=== PATIENT | female | born 1960 | race Hispanic/Latino ===

== ENCOUNTER 2018-04-17 09:35 | Observation (INO) | payer OTHER ==
[2018-04-17] MEDS ORDERED: Sodium Chloride 0.9% 1,000 ML IV STA (10:05)
--- NOTE | 2018-04-17 10:08 | ED PDOC ---
HPI: Abdomen Time Seen by Provider: 04/17/18 09:54 Chief Complaint (Nursing): Abdominal Pain History Per: Patient Onset/Duration Of Symptoms: Days (2) Current Symptoms Are (Timing): Still Present Severity: Moderate Pain Scale Rating Of: 5 Location Of Pain/Discomfort: Epigastric Quality Of Discomfort: Unable To Describe Associated Symptoms: Nausea, Vomiting. denies: Fever, Diarrhea Exacerbating Factors: None Alleviating Factors: None Additional Complaint(s): Epigastric abd pain assoc with nausea and vomiting x 2 days. Denies fever. Has been having BM as well as passing gas. Denies rectal bleeding. H/o intestinal obstruction and intussusseption Past Medical History Vital Signs: Last Vital Signs Temp Pulse Resp BP Pulse Ox 98 04/17/18 10:08 - Surgical History Other surgeries: Intestinal obstruction, intussusseption - Family History Family History: States: Unknown Family Hx - Allergies Allergies/Adverse Reactions: Allergies Allergy/AdvReac Type Severity Reaction Status Date / Time Penicillins Allergy Mild RASH Verified 04/17/18 09:46 Review of Systems ROS Statement: Except As Marked, All Systems Reviewed And Found Negative Constitutional: Negative for: Fever Gastrointestinal: Positive for: Nausea, Vomiting, Abdominal Pain. Negative for : Melena, Hematochezia Physical Exam - Physical Exam Appears: Positive for: Non-toxic, Uncomfortable Skin: Positive for: Normal Color, Warm, DRY ENT: Positive for: Other (Mucous membranes dry) Gastrointestinal/Abdominal: Positive for: Bowel Sounds, Soft, Tenderness ( Epigastric) Extremity: Positive for: Normal ROM Neurologic/Psych: Positive for: Alert, Oriented - Laboratory Results Result Diagrams: 04/17/18 10:15 04/17/18 10:15 - ECG O2 Sat by Pulse Oximetry: 98 Disposition - Clinical Impression Clinical Impression: SBO (small bowel obstruction) - Patient ED Disposition Is Patient to be Admitted: Yes - Disposition Disposition Time: 12:28 Condition: FAIR Forms: [employer] (Macedonian) - Pt Status Changed To: Hospital Disposition Of: Observation - POA Present On Arrival: None
[2018-04-17 10:31] LABS: BASO % 0.4 % (0.0-2.0); HEMOGLOBIN 14.8 g/dL (12.0-16.0); LYMPH # 1.3 K/uL (1.0-4.3); LYMPH % 14.4 % (20.0-40.0); MEAN CELL VOLUME 95.4 fl (81.0-99.0); MEAN CORPUSCULAR HEMOGLOBIN 33.3 pg (27.0-31.0); MEAN CORPUSCULAR HGB CONC 34.9 g/dL (33.0-37.0); MEAN PLATELET VOLUME 8.3 fl (7.2-11.7); MONO # 0.5 K/uL (0.0-0.8); MONO % 5.3 % (0.0-10.0); NEUT # 7.4 K/uL (1.8-7.0); NEUT % 79.9 % (50.0-75.0); NRBC % 0.1 % (0.0-0.0); RBC 4.45 Mil/uL (3.80-5.20); WHITE BLOOD COUNT 9.3 K/uL (4.8-10.8)
[2018-04-17 10:33] LABS: ALB/GLOB RATIO 1.3 (1.0-2.1); ALBUMIN 4.8 g/dL (3.5-5.0); CALCIUM 9.6 mg/dL (8.4-10.2); GFR AFRICAN-AMERICAN > 60; GFR NON-AFRICAN AMERICAN > 60; LIPASE 81 U/L (23-300)
[2018-04-17 10:41] LABS: ALT/SGPT 25 U/L (9-52); AST/SGOT 38 U/L (14-36); BLOOD UREA NITROGEN 17 mg/dl (7-17)
[2018-04-17] MEDS ORDERED: Iohexol 300 100 ML IJ ONE (11:12)
[2018-04-17] MEDS ORDERED: Sodium Chloride 0.9% 50 ML IV ONE (11:12)
--- NOTE | 2018-04-17 12:21 | CT ---
PROCEDURE: CT Abdomen and Pelvis with contrast HISTORY: Abd pain COMPARISON: None. TECHNIQUE: Contrast dose: 98 mL Omnipaque 300 Radiation dose: Total exam DLP = 465.1 mGy-cm. This CT exam was performed using one or more of the following dose reduction techniques: Automated exposure control, adjustment of the mA and/or kV according to patient size, and/or use of iterative reconstruction technique. FINDINGS: LOWER THORAX: Unremarkable. LIVER: Hepatic steatosis. No gross lesion or ductal dilatation. GALLBLADDER AND BILE DUCTS: Unremarkable. PANCREAS: Unremarkable. No gross lesion or ductal dilatation. SPLEEN: Unremarkable. ADRENALS: Unremarkable. No mass. KIDNEYS AND URETERS: Unremarkable. No hydronephrosis. No solid mass. VASCULATURE: Unremarkable. No aortic aneurysm. BOWEL: Dilated small bowel with fecalization of small bowel contents with transition in the distal ileum with there is submucosal edema and small amount of adjacent fluid. Colonic diverticulosis. APPENDIX: No findings to suggest acute appendicitis. PERITONEUM: Unremarkable. No free fluid. No free air. LYMPH NODES: Unremarkable. No enlarged lymph nodes. BLADDER: Unremarkable. REPRODUCTIVE: Right adnexal cyst measuring 7.7 x 5.3 cm. BONES: No acute fracture. OTHER FINDINGS: None. IMPRESSION: High-grade small bowel obstruction with transition in the distal ileum where there is submucosal edema and a small amount of adjacent fluid. Multiple attempts to convey the findings to the emergency department were unsuccessful.
--- NOTE | 2018-04-17 13:33 | CP.PCM.CON ---
History of Present Illness - History of Present Illness History of Present Illness: General surgery consult note for Dr. Migel Whaley, PGY-2 Pt S & E at bedside at 1305 57F w/PSH for ex-lap x 2, laparoscopy w/adhesionolysis consulted for SBO. Pt reports sudden onset of abdominal pain one day [employer] in AM, pain was sharp, epigastric, non radiating, constant since onset, worsening in intensity overnight. Tried Tramadol and MJ without relief. Pt reports at least 30 episodes of similar, usually self-resolving at home without intervention. Pt admits to eating only solid foods at breakfast, generally eats ice cream for dinner. Also admits to N, emesis x 6-7 (white foam, nb, nb), flatus in the AM on day of evaluation, BM (normal caliber/consistency) at approximately 9am on day of evaluation, generalized weakness, dizziness, headache, palpitations, episodes of diaphoresis with pain, subjective fevers/chills, fatigue. Denies constipation, diarrhea, changes in urinary habits, dysuria, back pain, chest pain, SOB, numbness/tingling of extremities, other complaints. In ED- Afebrile, no leukocytosis, Vitals WNL. CT abdomen w/High-grade small bowel obstruction with transition in the distal ileum where there is submucosal edema and a small amount of adjacent fluid. PMH: hx TB, hx of intussussception at 10mos with recurrent episodes of abdominal pain PSH: ex-lap w/bowel resection at 10mos, ex-lap with adhensionolysis at 13yrs, laparoscopy w/adhesionlysis in 2012 All: PCN SH: Rare ETOH use, hx tobacco use - quit in 2007 (hx of #5 cigarettes daily x 35 yrs), admits to occasional MJ use FH: Non contributory Review of Systems - Review of Systems All systems: reviewed and no additional remarkable complaints except - Constitutional Constitutional: Anorexia (decreased appetite), Chills, Fever (subjective), Weakness. absent: Weight Loss - EENT Eyes: absent: Change in Vision Ears: Dizziness Nose/Mouth/Throat: absent: Sore Throat - Cardiovascular Cardiovascular: Palpitations. absent: Chest Pain, Leg Edema - Gastrointestinal Gastrointestinal: Abdominal Pain, Bloating (slightly), Nausea, Vomiting. absent : Change in Bowel Habits, Constipation, Diarrhea, Hematemesis, Hematochezia, Melena - Genitourinary Genitourinary: absent: Change in Urinary Stream, Dysuria, Hematuria - Musculoskeletal Musculoskeletal: absent: Back Pain, Numbness, Tingling - Integumentary Integumentary: absent: Rash - Neurological Neurological: Dizziness, Weakness. absent: Focal Weakness - Psychiatric Psychiatric: absent: Change in Appetite - Endocrine Endocrine: Fatigue Past Patient History - Past Social History Smoking Status: Never Smoked - GENITOURINARY/GYNECOLOGICAL Hx Genitourinary Disorders: Yes - PSYCHIATRIC Hx Substance Use: No - SURGICAL HISTORY Hx Surgeries: Yes Other/Comment: intestinal obstruction, intussusseption - ANESTHESIA Hx Anesthesia: Yes Hx Anesthesia Reactions: No Meds Allergies/Adverse Reactions: Allergies Allergy/AdvReac Type Severity Reaction Status Date / Time Penicillins Allergy Mild RASH Verified 04/17/18 09:46 - Medications Medications: Current Medications Famotidine (Pepcid) 20 mg IVP Q12 [facility] Sodium Chloride (Sodium Chloride 0.9%) 1,000 mls @ 150 mls/hr IV .Q6H40M [facility] Stop: 04/17/18 16:44 Last Admin: 04/17/18 10:26 Dose: 150 mls/hr Sodium Chloride (Sodium Chloride 0.9%) 1,000 mls @ 125 mls/hr IV .Q8H [facility] Stop: 04/18/18 13:09 Ketorolac Tromethamine (Toradol) 30 mg IVP Q6 PRN PRN Reason: Pain, moderate (4-7) Morphine Sulfate (Morphine) 2 mg IVP Q4 PRN PRN Reason: Pain, severe (8-10) Ondansetron HCl (Zofran Inj) 4 mg IVP Q6 PRN PRN Reason: Nausea/Vomiting Physical Exam - Constitutional Appears: Non-toxic, No Acute Distress - Head Exam Head Exam: ATRAUMATIC, NORMAL INSPECTION, NORMOCEPHALIC - Eye Exam Eye Exam: EOMI, Normal appearance - ENT Exam ENT Exam: Mucous Membranes Moist, Normal Exam - Neck Exam Neck exam: Positive for: Full Rom, Normal Inspection - Respiratory Exam Respiratory Exam: Clear to Auscultation Bilateral, NORMAL BREATHING PATTERN. absent: Rales, Rhonchi, Wheezes, Respiratory Distress, Stridor - Cardiovascular Exam Cardiovascular Exam: REGULAR RHYTHM, +S1, +S2 - GI/Abdominal Exam GI & Abdominal Exam: Hypoactive Bowel Sounds, Soft, Tenderness (epigastric area , suprapubic at distal aspect of ex-lap incision). absent: Distended, Firm, Guarding, Hernia, Normal Bowel Sounds Additional comments: well healed paramedian incision, well healed midline incision, well healed linear incision in epigastric area - Rectal Exam Rectal Exam: Deferred (declined) - Extremities Exam Extremities exam: Positive for: normal inspection. Negative for: pedal edema - Neurological Exam Neurological exam: Alert, CN II-XII Intact, Oriented x3 - Psychiatric Exam Psychiatric exam: Normal Affect, Normal Mood - Skin Skin Exam: Dry, Intact, Normal Color, Warm Results - Vital Signs Recent Vital Signs: Last Vital Signs Temp 98.8 F 04/17/18 13:23 Pulse 73 04/17/18 13:23 Resp 15 04/17/18 13:23 BP 121/74 04/17/18 13:23 Pulse Ox 98 04/17/18 12:29 - Labs Result Diagrams: 04/17/18 10:15 04/17/18 10:15 Labs: Laboratory Results - last 24 hr 04/17/18 04/17/18 10:15 10:15 WBC 9.3 RBC 4.45 Hgb 14.8 Hct 42.4 MCV 95.4 MCH 33.3 H MCHC 34.9 RDW 13.0 Plt Count 274 MPV 8.3 Neut % (Auto) 79.9 H Lymph % (Auto) 14.4 L [place] % (Auto) 5.3 Eos % (Auto) 0.0 Baso % (Auto) 0.4 Neut # (Auto) 7.4 H Lymph # (Auto) 1.3 [place] # (Auto) 0.5 Eos # (Auto) 0.0 Baso # (Auto) 0.0 Sodium 142 Potassium 4.3 Chloride 105 Carbon Dioxide 23 Anion Gap 18 BUN 17 Creatinine 0.7 Est GFR ( Amer) > 60 Est GFR (Non-Af Amer) > 60 Random Glucose 108 H Calcium 9.6 Total Bilirubin 0.9 AST 38 H ALT 25 Alkaline Phosphatase 53 Total Protein 8.5 H Albumin 4.8 Globulin 3.8 Albumin/Globulin Ratio 1.3 Lipase 81 Assessment & Plan - Assessment and Plan (Free Text) Assessment: 57F w/PSH for ex-lap x 2, laparoscopy w/adhesionolysis, recurrent episodes of abdominal pain consulted for SBO Plan: Pain control IVF Serial ab exams NGT if condition worsens- pt currently declining Pt requesting supervisor packing room evaluation for diet recommendations Further recs pending attending evaluation Will DW attending Jovana, PGY-2 - Date & Time Date: 04/17/18 Time: 13:35
--- NOTE | 2018-04-17 17:48 | CP.PCM.CON ---
History of Present Illness - History of Present Illness History of Present Illness: General surgery Agree with resident's consult note. Pt seen and examined now 1745, and she reports feeling significantly better. She reports she can lay on her stomach now, which she wasn't able to do previously. She hasn't passed gas since this AM. She reports she usually stays at home for her current abdominal pain however presented to the ED today because she felt very dehydrated and had palpitations. Vitals, Labs, and CT results noted. PE Gen: Pt laying in bed in NAD Skin: warm and dry Cardio: s1s2 rrr Lungs: CTA bilaterally Abd: Soft, not distended, (+) hypoactive BS, Mild tenderness near well healed surgical scars. Extr: (-) calf tenderness bilaterally A/P SBO Appears to be improving, as pt does not find the need for NGT as she is not nauseous, not vomiting, and has improved abdominal discomfort. Awaiting flatus Keep NPO for now Continue IVF. Past Patient History - Past Social History Smoking Status: Never Smoked - GENITOURINARY/GYNECOLOGICAL Hx Genitourinary Disorders: Yes - PSYCHIATRIC Hx Substance Use: No - SURGICAL HISTORY Hx Surgeries: Yes Other/Comment: intestinal obstruction, intussusseption - ANESTHESIA Hx Anesthesia: Yes Hx Anesthesia Reactions: No Meds Allergies/Adverse Reactions: Allergies Allergy/AdvReac Type Severity Reaction Status Date / Time Penicillins Allergy Mild RASH Verified 04/17/18 09:46 - Medications Medications: Current Medications Famotidine (Pepcid) 20 mg IVP Q12 [facility] Sodium Chloride (Sodium Chloride 0.9%) 1,000 mls @ 125 mls/hr IV .Q8H [facility] Stop: 04/18/18 13:09 Ketorolac Tromethamine (Toradol) 30 mg IVP Q6 PRN PRN Reason: Pain, moderate (4-7) Morphine Sulfate (Morphine) 2 mg IVP Q4 PRN PRN Reason: Pain, severe (8-10) Ondansetron HCl (Zofran Inj) 4 mg IVP Q6 PRN PRN Reason: Nausea/Vomiting Results - Vital Signs Recent Vital Signs: Last Vital Signs Temp 98.1 F 04/17/18 15:53 Pulse 71 04/17/18 15:53 Resp 19 04/17/18 15:53 BP 89/55 L 04/17/18 15:53 Pulse Ox 96 07/08/18 15:53 - Labs Result Diagrams: 04/17/18 10:15 04/17/18 10:15 Labs: Laboratory Results - last 24 hr 04/17/18 04/17/18 10:15 10:15 WBC 9.3 RBC 4.45 Hgb 14.8 Hct 42.4 MCV 95.4 MCH 33.3 H MCHC 34.9 RDW 13.0 Plt Count 274 MPV 8.3 Neut % (Auto) 79.9 H Lymph % (Auto) 14.4 L [place] % (Auto) 5.3 Eos % (Auto) 0.0 Baso % (Auto) 0.4 Neut # (Auto) 7.4 H Lymph # (Auto) 1.3 [place] # (Auto) 0.5 Eos # (Auto) 0.0 Baso # (Auto) 0.0 Sodium 142 Potassium 4.3 Chloride 105 Carbon Dioxide 23 Anion Gap 18 BUN 17 Creatinine 0.7 Est GFR ( Amer) > 60 Est GFR (Non-Af Amer) > 60 Random Glucose 108 H Calcium 9.6 Total Bilirubin 0.9 AST 38 H ALT 25 Alkaline Phosphatase 53 Total Protein 8.5 H Albumin 4.8 Globulin 3.8 Albumin/Globulin Ratio 1.3 Lipase 81
[2018-04-17] MEDS: Sodium Chloride 0.9% 1,000 ML IV SCH (22:01)
[2018-04-18] MEDS: Sodium Chloride 0.9% 1,000 ML IV SCH (02:19)
[2018-04-18 06:17] LABS: BASO % 0.5 % (0.0-2.0); EOS # 0.1 K/uL (0.0-0.7); EOS % 1.3 % (0.0-4.0); HEMOGLOBIN 12.1 g/dL (12.0-16.0); LYMPH # 2.9 K/uL (1.0-4.3); LYMPH % 45.1 % (20.0-40.0); MEAN CELL VOLUME 96.7 fl (81.0-99.0); MEAN CORPUSCULAR HGB CONC 34.1 g/dL (33.0-37.0); MEAN PLATELET VOLUME 8.1 fl (7.2-11.7); MONO # 0.6 K/uL (0.0-0.8); MONO % 8.9 % (0.0-10.0); NEUT # 2.9 K/uL (1.8-7.0); NEUT % 44.2 % (50.0-75.0); NRBC % 0.3 % (0.0-0.0); RBC 3.67 Mil/uL (3.80-5.20); RED CELL DISTRIBUTION WIDTH 13.3 % (11.5-14.5); WHITE BLOOD COUNT 6.5 K/uL (4.8-10.8)
[2018-04-18 06:21] LABS: ALB/GLOB RATIO 1.2 (1.0-2.1); ALBUMIN 3.2 g/dL (3.5-5.0); ALT/SGPT 22 U/L (9-52); AST/SGOT 21 U/L (14-36); BLOOD UREA NITROGEN 19 mg/dl (7-17); CALCIUM 8.2 mg/dL (8.4-10.2); GFR AFRICAN-AMERICAN > 60; GFR NON-AFRICAN AMERICAN > 60
[2018-04-18] MEDS ORDERED: Potassium Chloride 20 mEq ER Tab PO ONE (07:30)
--- NOTE | 2018-04-18 07:50 | CP.PCM.HP ---
History of Present Illness - History of Present Illness History of Present Illness: pt doing well admitted for partial sbo which she has a h/o no fcnvd bw and ct noted surgical consult approxiated pt requesting dietsry consult Present on Admission - Present on Admission Any Indicators Present on Admission: No Review of Systems - Gastrointestinal Gastrointestinal: As Per HPI, Abdominal Pain, Bloating Past Patient History - Past Medical History & Family History Past Medical History?: No - Past Social History Smoking Status: Never Smoked - MUSCULOSKELETAL/RHEUMATOLOGICAL Hx Falls: No - GENITOURINARY/GYNECOLOGICAL Hx Genitourinary Disorders: Yes - PSYCHIATRIC Hx Substance Use: No - SURGICAL HISTORY Hx Surgeries: Yes Other/Comment: Caesarean section; abdominal surgery. intestinal obstruction, intussusseption - ANESTHESIA Hx Anesthesia: Yes Hx Anesthesia Reactions: No Meds Allergies/Adverse Reactions: Allergies Allergy/AdvReac Type Severity Reaction Status Date / Time Penicillins Allergy Mild RASH Verified 04/17/18 09:46 Physical Exam - Constitutional Appears: Well, Non-toxic, No Acute Distress - Head Exam Head Exam: ATRAUMATIC, NORMAL INSPECTION, NORMOCEPHALIC - Eye Exam Eye Exam: EOMI, Normal appearance, PERRL Pupil Exam: NORMAL ACCOMODATION, PERRL - ENT Exam ENT Exam: Mucous Membranes Moist, Normal Exam - Neck Exam Neck exam: Positive for: Normal Inspection - Respiratory Exam Respiratory Exam: Clear to Auscultation Bilateral, NORMAL BREATHING PATTERN - Cardiovascular Exam Cardiovascular Exam: REGULAR RHYTHM - GI/Abdominal Exam GI & Abdominal Exam: Normal Bowel Sounds, Soft. absent: Tenderness - Rectal Exam Rectal Exam: NORMAL INSPECTION - Extremities Exam Extremities exam: Positive for: full ROM, normal capillary refill, normal inspection, pedal pulses present - Back Exam Back exam: FULL ROM, NORMAL INSPECTION - Neurological Exam Neurological exam: Alert, CN II-XII Intact, Normal Gait, Oriented x3, Reflexes Normal - Psychiatric Exam Psychiatric exam: Normal Affect, Normal Mood - Skin Skin Exam: Dry, Intact, Normal Color, Warm Results - Vital Signs Recent Vital Signs: Last Vital Signs Temp 99 F 04/18/18 06:00 Pulse 76 04/18/18 06:00 Resp 20 04/18/18 06:00 BP 100/60 04/18/18 06:00 Pulse Ox 98 04/18/18 06:00 - Labs Result Diagrams: 04/18/18 06:02 04/18/18 06:02 Labs: Laboratory Results - last 24 hr 04/17/18 04/17/18 04/18/18 10:15 10:15 06:02 WBC 9.3 6.5 RBC 4.45 3.67 L Hgb 14.8 12.1 D Hct 42.4 35.5 MCV 95.4 96.7 MCH 33.3 H 33.0 H MCHC 34.9 34.1 RDW 13.0 13.3 Plt Count 274 181 MPV 8.3 8.1 Neut % (Auto) 79.9 H 44.2 L Lymph % (Auto) 14.4 L 45.1 H [place] % (Auto) 5.3 8.9 Eos % (Auto) 0.0 1.3 Baso % (Auto) 0.4 0.5 Neut # (Auto) 7.4 H 2.9 Lymph # (Auto) 1.3 2.9 [place] # (Auto) 0.5 0.6 Eos # (Auto) 0.0 0.1 Baso # (Auto) 0.0 0.0 Sodium 142 Potassium 4.3 Chloride 105 Carbon Dioxide 23 Anion Gap 18 BUN 17 Creatinine 0.7 Est GFR ( Amer) > 60 Est GFR (Non-Af Amer) > 60 Random Glucose 108 H Calcium 9.6 Total Bilirubin 0.9 AST 38 H ALT 25 Alkaline Phosphatase 53 Total Protein 8.5 H Albumin 4.8 Globulin 3.8 Albumin/Globulin Ratio 1.3 Lipase 81 04/18/18 06:02 WBC RBC Hgb Hct MCV MCH MCHC RDW Plt Count MPV Neut % (Auto) Lymph % (Auto) [place] % (Auto) Eos % (Auto) Baso % (Auto) Neut # (Auto) Lymph # (Auto) [place] # (Auto) Eos # (Auto) Baso # (Auto) Sodium 143 Potassium 3.8 Chloride 113 H Carbon Dioxide 20 L Anion Gap 14 BUN 19 H Creatinine 0.7 Est GFR ( Amer) > 60 Est GFR (Non-Af Amer) > 60 Random Glucose 72 Calcium 8.2 L Total Bilirubin 0.5 AST 21 ALT 22 Alkaline Phosphatase 38 D Total Protein 5.8 L Albumin 3.2 L D Globulin 2.6 Albumin/Globulin Ratio 1.2 Lipase Assessment & Plan (1) DVT prophylaxis Assessment and Plan: scd and ae hose ambulation Status: Acute (2) SBO (small bowel obstruction) Assessment and Plan: npo, now cld and advance as francisco as per surgery f/u surgical consult dietary as requested by pt pain/nausea control Status: Acute Decision To Admit - Pt Status Changed To: Hospital Disposition Of: Observation - . Bed Request Type: Med/Surg Admitting Physician: Alison Wallace
--- NOTE | 2018-04-18 07:50 | CP.PCM.PN ---
<Radha Das - Last Filed: 04/18/18 07:47> Subjective - Date & Time of Evaluation Date of Evaluation: 04/18/18 Time of Evaluation: 07:47 - Subjective Subjective: General Surgery Dr. Pereira Pt S&E @bedside. NAEO. Pt denies abd pain, N/V, F/C. (+)BM/Flatus. hungry, requesting diet. Objective - Vital Signs/Intake and Output Vital Signs (last 24 hours): Temp Pulse Resp BP Pulse Ox 99 F 76 20 100/60 98 04/18/18 06:00 04/18/18 06:00 04/18/18 06:00 04/18/18 06:00 04/18/18 06:00 - Medications Medications: Current Medications Famotidine (Pepcid) 20 mg IVP Q12 [facility] Last Admin: 04/17/18 21:30 Dose: 20 mg Sodium Chloride (Sodium Chloride 0.9%) 1,000 mls @ 125 mls/hr IV .Q8H [facility] Stop: 04/18/18 13:09 Last Admin: 04/18/18 02:19 Dose: 125 mls/hr Ketorolac Tromethamine (Toradol) 30 mg IVP Q6 PRN PRN Reason: Pain, moderate (4-7) Morphine Sulfate (Morphine) 2 mg IVP Q4 PRN PRN Reason: Pain, severe (8-10) Last Admin: 04/17/18 21:33 Dose: 2 mg Ondansetron HCl (Zofran Inj) 4 mg IVP Q6 PRN PRN Reason: Nausea/Vomiting - Labs Labs: 04/18/18 06:02 04/18/18 06:02 - Constitutional Appears: Non-toxic, No Acute Distress - Head Exam Head Exam: NORMAL INSPECTION - Eye Exam Eye Exam: Normal appearance - ENT Exam ENT Exam: Mucous Membranes Moist - Respiratory Exam Respiratory Exam: NORMAL BREATHING PATTERN. absent: Accessory Muscle Use, Respiratory Distress - Cardiovascular Exam Cardiovascular Exam: REGULAR RHYTHM. absent: Bradycardia, Tachycardia - GI/Abdominal Exam GI & Abdominal Exam: Soft. absent: Distended, Firm, Guarding, Rigid, Tenderness , Rebound Additional comments: midline scars present - Extremities Exam Extremities Exam: Normal Inspection - Neurological Exam Neurological Exam: Alert, Awake, Oriented x3 - Psychiatric Exam Psychiatric exam: Normal Affect, Normal Mood - Skin Skin Exam: Dry, Intact, Normal Color, Warm Assessment and Plan - Assessment and Plan (Free Text) Assessment: 57 y/o F w/ resolved, recurrent SBO - CLD, advance as tolerated - pain management - monitor bowel fxn - encourage OOB to chair/Amb Pt discussed w/ Dr. Randall Das DO PGY3 <Elie Pereira - Last Filed: 04/18/18 12:12> Subjective - Date & Time of Evaluation Time of Evaluation: 11:50 - Subjective Subjective: Patient was seen and examined at the bedside. Agree with resident's note above. Passing flatus and having bowel movements, abdominal pain has resolved. Objective - Vital Signs/Intake and Output Vital Signs (last 24 hours): Temp Pulse Resp BP Pulse Ox 98 F 68 18 99/60 L 96 04/18/18 08:35 04/18/18 08:35 04/18/18 08:35 04/18/18 08:35 04/18/18 08:35 - Medications Medications: Current Medications Ketorolac Tromethamine (Toradol) 30 mg IVP Q6 PRN PRN Reason: Pain, moderate (4-7) Last Admin: 04/18/18 08:46 Dose: 30 mg Morphine Sulfate (Morphine) 2 mg IVP Q4 PRN PRN Reason: Pain, severe (8-10) Last Admin: 04/17/18 21:33 Dose: 2 mg Ondansetron HCl (Zofran Inj) 4 mg IVP Q6 PRN PRN Reason: Nausea/Vomiting - Labs Labs: 04/18/18 06:02 04/18/18 06:02
[2018-04-19 06:27] LABS: BASO % 0.7 % (0.0-2.0); EOS # 0.1 K/uL (0.0-0.7); EOS % 2.1 % (0.0-4.0); HEMOGLOBIN 11.5 g/dL (12.0-16.0); LYMPH # 2.9 K/uL (1.0-4.3); LYMPH % 48.2 % (20.0-40.0); MEAN CELL VOLUME 96.8 fl (81.0-99.0); MEAN CORPUSCULAR HEMOGLOBIN 33.4 pg (27.0-31.0); MEAN CORPUSCULAR HGB CONC 34.5 g/dL (33.0-37.0); MONO # 0.4 K/uL (0.0-0.8); MONO % 7.3 % (0.0-10.0); NEUT # 2.5 K/uL (1.8-7.0); NEUT % 41.7 % (50.0-75.0); NRBC % 0.2 % (0.0-0.0); RBC 3.46 Mil/uL (3.80-5.20); RED CELL DISTRIBUTION WIDTH 12.9 % (11.5-14.5)
[2018-04-19 06:43] LABS: ALB/GLOB RATIO 1.1 (1.0-2.1); ALT/SGPT 22 U/L (9-52); AST/SGOT 23 U/L (14-36); BLOOD UREA NITROGEN 11 mg/dl (7-17); CALCIUM 8.3 mg/dL (8.4-10.2); GFR AFRICAN-AMERICAN > 60; GFR NON-AFRICAN AMERICAN > 60
--- NOTE | 2018-04-19 07:59 | CP.PCM.DIS ---
Provider - Provider Date of Admission: 04/17/18 12:27 Attending physician: Alison Wallace MD Time Spent in preparation of Discharge (in minutes): 15 Diagnosis - Discharge Diagnosis (1) DVT prophylaxis Status: Acute (2) SBO (small bowel obstruction) Status: Acute Hospital Course - Lab Results Lab Results: Most Recent Lab Values WBC 6.0 K/uL (4.8-10.8) 04/19/18 06:00 RBC 3.46 Mil/uL (3.80-5.20) L 04/19/18 06:00 Hgb 11.5 g/dL (12.0-16.0) L 04/19/18 06:00 Hct 33.5 % (34.0-47.0) L 04/19/18 06:00 MCV 96.8 fl (81.0-99.0) 04/19/18 06:00 MCH 33.4 pg (27.0-31.0) H 04/19/18 06:00 MCHC 34.5 g/dL (33.0-37.0) 04/19/18 06:00 RDW 12.9 % (11.5-14.5) 04/19/18 06:00 Plt Count 169 K/uL (130-400) 04/19/18 06:00 MPV 8.0 fl (7.2-11.7) 04/19/18 06:00 Neut % (Auto) 41.7 % (50.0-75.0) L 04/19/18 06:00 Lymph % (Auto) 48.2 % (20.0-40.0) H 04/19/18 06:00 [place] % (Auto) 7.3 % (0.0-10.0) 04/19/18 06:00 Eos % (Auto) 2.1 % (0.0-4.0) 04/19/18 06:00 Baso % (Auto) 0.7 % (0.0-2.0) 04/19/18 06:00 Neut # (Auto) 2.5 K/uL (1.8-7.0) 04/19/18 06:00 Lymph # (Auto) 2.9 K/uL (1.0-4.3) 04/19/18 06:00 [place] # (Auto) 0.4 K/uL (0.0-0.8) 04/19/18 06:00 Eos # (Auto) 0.1 K/uL (0.0-0.7) 04/19/18 06:00 Baso # (Auto) 0.0 K/uL (0.0-0.2) 04/19/18 06:00 Sodium 141 mmol/l (132-148) 04/19/18 06:00 Potassium 4.0 MMOL/L (3.6-5.0) 04/19/18 06:00 Chloride 111 mmol/L (98-107) H 04/19/18 06:00 Carbon Dioxide 23 mmol/L (22-30) 04/19/18 06:00 Anion Gap 11 (10-20) 04/19/18 06:00 BUN 11 mg/dl (7-17) 04/19/18 06:00 Creatinine 0.7 mg/dl (0.7-1.2) 04/19/18 06:00 Est GFR ( Amer) > 60 04/19/18 06:00 Est GFR (Non-Af Amer) > 60 04/19/18 06:00 Random Glucose 87 mg/dL (65-105) 04/19/18 06:00 Calcium 8.3 mg/dL (8.4-10.2) L 04/19/18 06:00 Total Bilirubin 0.5 mg/dl (0.2-1.3) 04/19/18 06:00 AST 23 U/L (14-36) 04/19/18 06:00 ALT 22 U/L (9-52) 04/19/18 06:00 Alkaline Phosphatase 36 U/L (38-126) L 04/19/18 06:00 Total Protein 5.8 G/DL (6.3-8.2) L 04/19/18 06:00 Albumin 3.0 g/dL (3.5-5.0) L 04/19/18 06:00 Globulin 2.8 gm/dL (2.2-3.9) 04/19/18 06:00 Albumin/Globulin Ratio 1.1 (1.0-2.1) 04/19/18 06:00 Lipase 81 U/L (23-300) 04/17/18 10:15 - Hospital Course Hospital Course: ivf, cld adv to bland surgical f/u Discharge Exam - Head Exam Head Exam: ATRAUMATIC, NORMAL INSPECTION, NORMOCEPHALIC - Eye Exam Eye Exam: EOMI, Normal appearance, PERRL Pupil Exam: NORMAL ACCOMODATION, PERRL - Respiratory Exam Respiratory Exam: Clear to PA & Lateral, NORMAL BREATHING PATTERN, UNREMARKABLE - Cardiovascular Exam Cardiovascular Exam: REGULAR RHYTHM, RRR, +S1, +S2 - GI/Abdominal Exam GI & Abdominal Exam: Normal Bowel Sounds, Soft, Unremarkable - Extremities Exam Extremities exam: full ROM, normal capillary refill, normal inspection, pedal pulses present - Neurological Exam Neurological exam: Alert, CN II-XII Intact, Normal Gait, Oriented x3, Reflexes Normal - Psychiatric Exam Psychiatric exam: Normal Affect, Normal Mood - Skin Skin Exam: Dry, Intact, Normal Color, Warm Discharge Plan - Follow Up Plan Condition: FAIR Disposition: HOME/ ROUTINE Instructions: Small Bowel Obstruction (DC) Additional Instructions: follow up with primary MD 1 week francisco po. no f/c, n/v/d no abd pain. clared by surgery for dc. po as francisco, activity as francisco cardiac nurse practitioner consult apprciated. final dx-partial recurrent sbo Referrals: Cesario Mora MD [Family Provider] - Elie Pereira MD [Staff Provider] -
--- NOTE | 2018-04-19 08:02 | CP.PCM.PN ---
<Radha Das - Last Filed: 04/19/18 08:02> Subjective - Date & Time of Evaluation Date of Evaluation: 04/19/18 Time of Evaluation: 07:45 - Subjective Subjective: General Surgery Dr. Pereira Pt S&E @bedside. NAEO. pt has no complaints. denies abd pain, N/V, F/C. tolerating bland diet. (+)BM/Flatus. wants to go home. Objective - Vital Signs/Intake and Output Vital Signs (last 24 hours): Temp Pulse Resp BP Pulse Ox 98.5 F 65 19 104/66 95 04/19/18 00:00 04/19/18 00:00 04/19/18 00:00 04/19/18 00:00 04/19/18 00:00 - Medications Medications: Current Medications Ketorolac Tromethamine (Toradol) 30 mg IVP Q6 PRN PRN Reason: Pain, moderate (4-7) Last Admin: 04/19/18 06:37 Dose: 30 mg Morphine Sulfate (Morphine) 2 mg IVP Q4 PRN PRN Reason: Pain, severe (8-10) Last Admin: 04/18/18 22:22 Dose: 2 mg Ondansetron HCl (Zofran Inj) 4 mg IVP Q6 PRN PRN Reason: Nausea/Vomiting - Labs Labs: 04/19/18 06:00 04/19/18 06:00 - Constitutional Appears: Non-toxic, No Acute Distress - Head Exam Head Exam: NORMAL INSPECTION - Eye Exam Eye Exam: Normal appearance - ENT Exam ENT Exam: Mucous Membranes Moist - Respiratory Exam Respiratory Exam: NORMAL BREATHING PATTERN. absent: Accessory Muscle Use, Respiratory Distress - Cardiovascular Exam Cardiovascular Exam: REGULAR RHYTHM. absent: Bradycardia, Tachycardia - GI/Abdominal Exam GI & Abdominal Exam: Soft. absent: Distended, Firm, Guarding, Rigid, Tenderness , Rebound - Extremities Exam Extremities Exam: Normal Inspection - Neurological Exam Neurological Exam: Alert, Awake, Oriented x3 - Psychiatric Exam Psychiatric exam: Normal Affect, Normal Mood - Skin Skin Exam: Dry, Intact, Normal Color, Warm Assessment and Plan - Assessment and Plan (Free Text) Assessment: 57 y/o F w/ resolved, recurrent SBO - ADAT - non-narcotic pain management - monitor bowel fxn - encourage OOB to chair/Amb - no surgical intervention at this time - pt cleared for discharge form surgical standpoint Pt discussed w/ Dr. Randall Das DO PGY3 <Elie Pereira - Last Filed: 04/19/18 10:19> Subjective - Date & Time of Evaluation Time of Evaluation: 10:00 - Subjective Subjective: Patient was seen and examined at the bedside. Agree with resident's note above. Denies any abdominal pain, no nausea, no vomiting, passing flatus and having normal bowel movements, tolerating regular diet. Objective - Vital Signs/Intake and Output Vital Signs (last 24 hours): Temp Pulse Resp BP Pulse Ox 98.3 F 82 20 104/57 L 94 L 04/19/18 08:32 04/19/18 08:32 04/19/18 08:32 04/19/18 08:32 04/19/18 08:32 - Medications Medications: Current Medications Ketorolac Tromethamine (Toradol) 30 mg IVP Q6 PRN PRN Reason: Pain, moderate (4-7) Last Admin: 04/19/18 06:37 Dose: 30 mg Morphine Sulfate (Morphine) 2 mg IVP Q4 PRN PRN Reason: Pain, severe (8-10) Last Admin: 04/18/18 22:22 Dose: 2 mg Ondansetron HCl (Zofran Inj) 4 mg IVP Q6 PRN PRN Reason: Nausea/Vomiting - Labs Labs: 04/19/18 06:00 04/19/18 06:00 - GI/Abdominal Exam Additional comments: soft, NT, ND, BS+, no rebound, no guarding, well healed scars from prior surgeries
[2018-04-19 08:33] VITALS: BP 104/57; PULSE 82; RESP 20; TEMP 98.3; O2SAT 94
== END 2018-04-19 11:45 | disposition home or self-care (01) ==
LOC: H.ER 09:35 → H.ERHOLD 12:27 → H.MEDSURG1 13:33
PROVIDERS: ADMIT Family Medicine; ATTEND Family Medicine
DX: K56.600 Partial intestinal obstruction, unspecified as to cause (principal); Z88.0 Allergy status to penicillin; Z87.891 Personal history of nicotine dependence
CPT/HCPCS: 36415; 74177; 80053; 81025; 83690; 85025; 96374; 99284; G0378; J1885; J2270; J2405; J7030; Q9967